=== PATIENT | female | born 1985 | race Caucasian/White ===

== ENCOUNTER 2021-01-14 12:22 | Emergency (ER) | payer OTHER ==
[~2021-01-14] VITALS: Ht 154.9 cm; Wt 51.2 kg
[2021-01-14] MEDS ORDERED: AMOXICILLIN/K CLAV 875/125MG TABLET. PO ONE (12:30)
[2021-01-14] MEDS ORDERED: DIPH,PERTUSS(ACELL),TET VAC/PF 0.5 ML SYRINGE. VAX IM ONE (12:45)
--- NOTE | 2021-01-14 12:47 | RAD ---
EXAM: Right long finger, 3 views. HISTORY: Dog bite. COMPARISON: None. FINDINGS: 3 views of the right long finger are obtained. There is a comminuted displaced fracture inv olving the tuft of the third distal phalanx. There is an overlying soft tissue defect due to a lacera tion. There is a stable overlying the soft tissues at the base of the first metacarpal. IMPRESSION: Comminuted displaced fracture involving the tuft of the third distal phalanx with overlyi ng soft tissue laceration. Electronically signed by: Tyra Doe MD (01/14/2021 12:45 PM) [id number]
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
[2021-01-14] MEDS ORDERED: BUPIVACAINE MPF 0.5% 30 ML VIAL. INJ ONE (14:30)
[2021-01-14 15:46] VITALS: BP 137/89
== END 2021-01-14 15:47 | disposition short-term general hospital (02) ==
LOC: ER 12:22
DX: S62.632A Displaced fracture of distal phalanx of right middle finger, initial encounter for closed fracture (principal); Z87.820 Personal history of traumatic brain injury; W54.1XXA Struck by dog, initial encounter; Y93.89 Activity, other specified; Y92.89 Other specified places as the place of occurrence of the external cause; Y99.8 Other external cause status
CPT/HCPCS: 29130; 73140; 90471; 90715; 99285-25